=== PATIENT | male | born 1965 | race Caucasian/White ===

== ENCOUNTER 2021-01-24 13:56 | Outpatient (REF) | payer OTHER, SELFPAY ==
--- NOTE | ~2021-01-24 | XR_ITS ---
EXAMINATION: XR KNEE, LEFT CLINICAL INFORMATION: Left knee pain. COMPARISON: None. TECHNIQUE: 4 views of the left knee. FINDINGS: There is no evidence of acute fracture or dislocation of the left knee. There is a small left knee effusion. Left knee joint spaces are maintained. There is some mild spurring about the lateral facet of the patellofemoral joint. There is a small spur site of insertion of the quadriceps tendon on the patella. XR/XR knee LT 4V IMPRESSION: Small left knee effusion. Mild patellofemoral joint degenerative change.
== END 2021-01-24 13:57 | disposition home or self-care (01) ==
LOC: HO.XRAY 13:56
PROVIDERS: PCP Internal Medicine; Visit Provider Internal Medicine
DX: M25.562 Pain in left knee (principal)
CPT/HCPCS: 73564

== ENCOUNTER 2021-10-05 14:05 | Outpatient (REF) | payer OTHER, SELFPAY ==
[2021-10-05 15:23] LABS: COVID-19 Test Negative (Negative)
== END 2021-10-05 14:06 | disposition home or self-care (01) ==
LOC: HO.LAB 14:05
PROVIDERS: Visit Provider Internal Medicine
DX: Z20.822 Contact with and (suspected) exposure to COVID-19 (principal)
CPT/HCPCS: 36415; 87635; C9803

== ENCOUNTER 2021-11-01 11:33 | Outpatient (REF) | payer OTHER, SELFPAY ==
[2021-11-01 13:19] LABS: Binax Internal Control QC Valid; Binax Now Covid-19 Ag Positive (Negative)
== END 2021-11-01 11:34 | disposition home or self-care (01) ==
LOC: HO.LAB 11:33
PROVIDERS: Visit Provider Internal Medicine
DX: Z20.822 Contact with and (suspected) exposure to COVID-19 (principal)
CPT/HCPCS: C9803

== ENCOUNTER 2023-07-02 08:49 | Outpatient (REF) | payer OTHER, SELFPAY ==
[2023-07-02 11:28] LABS: MANUAL DIFF FLAG NO
[2023-07-02 11:41] LABS: Basophils Absolute Auto 0.1 X10*3/uL (0.0-0.2); Basophils Percent Auto 0.7 % (0-2); Eosinophils Absolute Auto 0.5 X10*3/uL (0.0-0.4); Eosinophils Percent Auto 6.7 % (0-4); Hematocrit 44.9 % (42.0-52.0); Hemoglobin 15.2 g/dl (14.0-18.0); Imm Gran Abs Auto 0.02 X10*3/uL (0.00-0.03); Imm Gran Pct Auto 0.3 % (0.0-0.4); Lymphocytes Absolute Auto 3.6 X10*3/uL (1.2-4.9); Lymphocytes Percent Auto 47.5 % (20-40); Mean Corpuscular HGB Conc 33.9 g/dl (31.0-36.0); Mean Corpuscular Hemoglobin 30.1 pg (27.0-33.0); Mean Corpuscular Volume 88.9 fL (80.0-98.0); Mean Platelet Volume 10.4 fL (9.4-12.4); Monocytes Absolute Auto 0.7 X10*3/uL (0.1-1.2); Monocytes Percent Auto 8.9 % (2-11); Neutrophils Absolute Auto 2.7 x10*3/uL (2.0-8.3); Neutrophils Percent Auto 35.9 % (45-73); Platelet Count 247 X10*3/uL (160-400); Red Blood Count 5.05 X10*6/uL (4.60-5.80); Red Cell Distribution Width 12.9 % (11.0-16.0); White Blood Count 7.6 X10*3/uL (4.8-10.8)
[2023-07-02 11:54] LABS: Alanine Aminotransferase 18 U/L (0-40); Albumin Level 4.4 g/dL (3.5-5.0); Alkaline Phosphatase 60 U/L (39-117); Anion Gap 11 (12-20); Aspartate Amino Transferase 18 U/L (5-37); Bilirubin Total 0.7 mg/dL (0.0-1.0); Blood Urea Nitrogen 14 mg/dL (9-16); Calcium 10.6 mg/dL (8.4-10.2); Carbon Dioxide 28 mmol/L (22-29); Chloride 106 mmol/L (96-108); Cholesterol 208 mg/dL (<200); Estimated Glomerular Filt Rate > 60; Glucose Fasting 105 mg/dL (60-99); HDL Cholesterol 59 mg/dL (>40); LDL Cholesterol Calculated 123 mg/dL (<100); Potassium 4.4 mmol/L (3.3-5.1); Sodium 141 mmol/L (135-145); Total Protein 6.8 g/dL (6.5-8.0); Triglycerides 132 mg/dL (<150)
[2023-07-02 12:04] LABS: Prostate Specific Antigen Scr 1.67 ng/mL (<0.05-4.0)
== END 2023-07-02 08:50 | disposition home or self-care (01) ==
LOC: HO.HMGCLDS 08:49
PROVIDERS: PCP Internal Medicine; Visit Provider Internal Medicine
DX: Z12.5 Encounter for screening for malignant neoplasm of prostate (principal); R35.1 Nocturia; E78.00 Pure hypercholesterolemia, unspecified
CPT/HCPCS: 36415; 80053; 80061; 84153; 85025

== ENCOUNTER 2025-05-20 09:11 | Outpatient (AMB) | payer BC, SELFPAY ==
--- NOTE | 2025-05-20 09:16 | A.OFFPC_ITS ---
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 Worried about increased cancer risk Family history of skin cancer. Personal histor of SKs, freckles etc. Requests referral to dermatology Colonoscopy 2017-Dr Lee 10 year repeat ROS CONSTITUTIONAL: Denies weight loss, fever and chills. HEENT: Denies changes in vision and hearing. RESPIRATORY: Denies SOB and cough. CV: Denies palpitations and CP GI: Denies abdominal pain, nausea, vomiting and diarrhea. : Denies dysuria and urinary frequency. MSK: Denies new myalgia and joint pain. SKIN: Denies rash and pruritus. NEUROLOGICAL: Denies headache PSYCHIATRIC: Denies recent changes in mood. PHYSICAL EXAM: GENERAL: Alert and oriented x 3. NAD EYES: EOMI. Anicteric. HENT: Moist mucous membranes. No scleral icterus. No cervical lymphadenopathy. LUNGS: Clear to auscultation bilaterally. CARDIOVASCULAR: Regular rate and rhythm. No murmur. No JVD. ABDOMEN: Soft, non-tender +bs EXTREMITIES: No edema. Non-tender. SKIN: No rashes or lesions. Warm. NEUROLOGIC: No focal neurological deficits. CN II-XII grossly intact PSYCHIATRIC: Cooperative. Appropriate mood and affect [facility] Surgical History History of colonoscopy (~11/02/16) Social History Patient Tobacco Use Status: Former Tobacco user e-Cigarette/Vaping Use: Never Used Questionnaire AUDIT C Alcohol Use Questionnaire (AUDIT-C) 1. How often do you have a drink containing alcohol?: 2-4 times a month 2. How many drinks containing alcohol do you have on a typical day when you are drinking?: 3 or 4 Total Score: 3 Physical exam (Primary Care) Vital Signs: Last Vital Signs Temp 97.8 F 05/20/25 09:19 Pulse 66 05/20/25 09:19 Resp 16 05/20/25 09:19 BP 130/86 05/20/25 09:19 Pulse Ox 97 05/20/25 09:19 Oxygen Delivery Method Room Air 05/20/25 09:19 BMI result Body Mass Index 27.2 Tobacco/Smoking Status: Tobacco use Status Tobacco use date assessed 05/20/25 05/20/25 09:22 Patient Tobacco Use Status Former Tobacco user 05/20/25 09:22 e-Cigarette/Vaping Use Never Used 05/20/25 09:22 Coding Level of Care Code New Pt Prev Care 40-64y(18996) Diagnoses Physical exam Z00.00 Elevated glucose R73.09 Assessment & Plan Assessment & Plan (1) Physical exam: Code(s): Z00.00 - Encounter for general adult medical examination without abnormal findings (2) Elevated glucose: Code(s): R73.09 - Other abnormal glucose Category: Medical Plan CPE Past medical, surgical, social history reviewed Preventive measures for age discussed Labs ordered History of elevated glucose-he has recently lost 20 pounds. Congratulated on efforts. Orders: Orders Complete Blood Count Auto Diff Today E78.5 - Hyperlipidemia, unspecified, E83.52 - Hypercalcemia, R73.09 - Other abnormal glucose, R79.89 - Other specified abnormal findings of blood chemistry, Z12.5 - Encounter for screening for malignant neoplasm of prostate Hemoglobin A1c Today E78.5 - Hyperlipidemia, unspecified, E83.52 - Hypercalcemia, R73.09 - Other abnormal glucose, R79.89 - Other specified abnormal findings of blood chemistry, Z12.5 - Encounter for screening for malignant neoplasm of prostate Lipid Panel Today E78.5 - Hyperlipidemia, unspecified, E83.52 - Hypercalcemia, R73.09 - Other abnormal glucose, R79.89 - Other specified abnormal findings of blood chemistry, Z12.5 - Encounter for screening for malignant neoplasm of prostate TSH reflex Free T4 Today Z13.228 - Encounter for screening for other metabolic disorders Comprehensive Met. Panel Today E78.5 - Hyperlipidemia, unspecified, E83.52 - Hypercalcemia, R73.09 - Other abnormal glucose, R79.89 - Other specified abnormal findings of blood chemistry, Z12.5 - Encounter for screening for ma lignant neoplasm of prostate Prostate Specific Antigen Today E78.5 - Hyperlipidemia, unspecified, E83.52 - Hypercalcemia, R73.09 - Other abnormal glucose, R79.89 - Other specified abnormal findings of blood chemistry, Z12.5 - Encounter for screening for malignant neoplasm of prostate Pathologist Review - CBC Today R79.89 - Other specified abnormal findings of blood chemistry Referrals Dermatology Referral Z12.83 - Encounter for screening for malignant neoplasm of skin
[2025-05-20 09:19] VITALS: BP 130/86; PULSE 66; RESP 16; TEMP 36.6; O2SAT 97; BMI 27.2
--- OUTSIDE RECORDS SUMMARY | 2025-05-20 09:29 | XMS_ITS | Patient Health Record ---
Author Organization [facility] Address [address] [place] [address] Care Team Providers Care Technology Architect Name Role Phone Brennon (RETIRED) Mathew LOBO Primary Care Provide r Unavailable Van Gerber Unavailable [phone] Reason For Referral No Information Medications Medication SIG (Take, Route, Frequency, Duration) Notes Start Date End Date Status Atorvastatin Calcium 10 MG Orally Active Problems Problem Type SNOMED Code ICD Code Onset Dates Problem Status W/U Status Risk Notes Problem 375709142 Encounter for screening for malignant neoplasm of colon (Z12.11) Active confirmed Problem Encounter for screening for malignant neoplasm of rectum (Z12.12) Active confirmed Problem 64368414 Preprocedural examination (Z01.818) Active confirmed Plan Of Treatment Pending Test Test Name Order Date GI BIOPSY 11/02/2016 Future Test Test Name Order Date COLONOSCOPY 08/28/2016 Insurance Providers Payer Name Payer Address Payer Phone Subscriber Number Group Number Insured Name Patient Relationship to Insured Coverage Start Date Coverage End Date [facility] PROFESSIONAL CLAIMS [address] [place] [phone] [id number] SILVIA OLSON Self - patient is the insured Medical (General) History Medical History History ICD Code Denies [place],DM,CVA,Lung disease,renal dise ase Surgical History Surgery Date(Month/Year) Abdominal surgery as a child---? Of some type of obstruction
== END 2025-05-20 09:45 | disposition home or self-care (01) ==
LOC: HO.HMCHD 09:11
PROVIDERS: PCP Internal Medicine; Visit Provider Internal Medicine
DX: Z00.00 Encounter for general adult medical examination without abnormal findings (principal); R73.09 Other abnormal glucose

== ENCOUNTER 2025-05-20 09:51 | Outpatient (REF) | payer BC, SELFPAY ==
[2025-05-20 11:23] LABS: Hematocrit 42.2 % (42.0-52.0); Hemoglobin 14.6 g/dl (14.0-18.0); Imm Gran Abs Auto 0.02 X10*3/uL (0.00-0.03); Imm Gran Pct Auto 0.1 % (0.0-0.4); Lymphocytes Absolute Auto 11.5 X10*3/uL (1.2-4.9); MANUAL DIFF FLAG SCAN; Mean Corpuscular HGB Conc 34.6 g/dl (31.0-36.0); Mean Corpuscular Hemoglobin 30.4 pg (27.0-33.0); Mean Corpuscular Volume 87.7 fL (80.0-98.0); NRBC Abs Auto 0.000 X10*3/uL (0.0-0.012); NRBC Pct Auto 0.0 /100WBC (0.0-0.2); Platelet Count 237 X10*3/uL (160-400); Red Blood Count 4.81 X10*6/uL (4.60-5.80); SCAN SMEAR FLAG 1; White Blood Count 15.3 X10*3/uL (4.8-10.8)
[2025-05-20 11:30] LABS: Hemoglobin A1C 134.9537 umol/L; Total Hemoglobin (HGBA1C) 3855.1039 umol/L
[2025-05-20 11:53] LABS: Alanine Aminotransferase 22 U/L (0-40); Albumin Level 4.8 g/dL (3.5-5.0); Alkaline Phosphatase 71 U/L (39-117); Anion Gap 10 (12-20); Aspartate Amino Transferase 27 U/L (5-37); Blood Urea Nitrogen 10 mg/dL (9-16); Calcium 10.1 mg/dL (8.4-10.2); Carbon Dioxide 28 mmol/L (22-29); Chloride 108 mmol/L (96-108); Cholesterol 201 mg/dL (<200); Estimated Glomerular Filt Rate > 60; HDL Cholesterol 55 mg/dL (>40); Potassium 4.6 mmol/L (3.3-5.1); Prostate Specific Antigen 2.04 ng/mL (<0.05-4.0); Sodium 141 mmol/L (135-145); Total Protein 7.1 g/dL (6.5-8.0); Triglycerides 116 mg/dL (<150)
== END 2025-05-20 09:52 | disposition home or self-care (01) ==
LOC: HO.10HDL 09:51
PROVIDERS: Visit Provider Internal Medicine
DX: Z12.5 Encounter for screening for malignant neoplasm of prostate (principal); Z13.228 Encounter for screening for other metabolic disorders; R79.89 Other specified abnormal findings of blood chemistry; R73.09 Other abnormal glucose; E83.52 Hypercalcemia; E78.5 Hyperlipidemia, unspecified
CPT/HCPCS: 80053; 80061; 83036; 84153; 84443; 85025

== ENCOUNTER → 2025-06-23 15:20 | Outpatient (BNV) | payer BC, SELFPAY | PROVIDERS: PCP Internal Medicine; Referring Provider Internal Medicine; Visit Provider Internal Medicine | DX: D72.820 Lymphocytosis (symptomatic) (principal) | CPT/HCPCS: 99204 ==

== ENCOUNTER 2025-07-20 15:32 | Outpatient (REF) | payer BC, SELFPAY ==
--- NOTE | ~2025-07-20 | US_ITS ---
CLINICAL HISTORY: CLL, evaluate for hepatosplenomegaly Ultrasound of the abdomen Comparison: None available Findings: The liver is normal in size, measuring 16.4cm. Normal echogenicity without focal lesions. Normal flow is visualized within the portal vein. No intrahepatic biliary ductal dilatation. No cholelithiasis. No gallbladder wall thickening or pericholecystic fluid. Negative Higgins's sign. The common bile duct is normal, measuring 0.4cm. Unremarkable limited evaluation of the pancreas. The right kidney is normal in echogenicity and size, measuring 10.8cm. No nephrolithiasis or hydronephrosis. Simple cyst in the lower pole measuring 0.7 x 0.5 x 0.7 cm The left kidney is normal echogenicity and size, measuring 11.1cm. No nephrolithiasis or hydronephrosis. Lobular contour of the midportion. The spleen is without focal lesions and normal in size, measuring 12.1cm. The aorta and IVC are unremarkable. No ascites. Impression: No hepatosplenomegaly. Lobular contour of the midportion of the left kidney is favored to be a dromedary hump, a normal variant. A solid renal lesion is considered less likely. This can be confirmed with nonemergent cross-sectional imaging. This document has been electronically signed by: Sharon Dinh MD on 07/20/2025 17:25:53
--- OUTSIDE RECORDS SUMMARY | 2025-07-20 16:49 | XMS_ITS | Patient Health Record ---
Author Organization [facility] Address [address] [place] [address] Care Team Providers Care Vice President Of Sales Name Role Phone Brennon (RETIRED) Mathew LOBO Primary Care Provide r Unavailable Van Gerber Unavailable [phone] Reason For Referral No Information Medications Medication SIG (Take, Route, Frequency, Duration) Notes Start Date End Date Status Atorvastatin Calcium 10 MG Orally Active Problems Problem Type SNOMED Code ICD Code Onset Dates Problem Status W/U Status Risk Notes Problem [id number] Encounter for screening for malignant neoplasm of colon (Z12.11) Active confirmed Problem Screening for malignant neoplasm of rectum (443209447) Encounter for screening for malignant neoplasm of rectum (Z12.12) Active confirmed Problem 84888816 Preprocedural examination (Z01.818) Active confirmed Plan Of Treatment Pending Test Test Name Order Date GI BIOPSY 11/02/2016 Future Test Test Name Order Date COLONOSCOPY 08/28/2016 Insurance Providers Payer Name Payer Address Payer Phone Subscriber Number Group Number Insured Name Patient Relationship to Insured Coverage Start Date Coverage End Date [facility] [employer] PROFESSIONAL CLAIMS [address] [place] [address] [id number] SILVIA SHIRLEY Self - patient is the insured Medical (General) History Medical History History ICD Code Denies CA,DM,CVA,Lung disease,renal dise ase Surgical History Surgery Date(Month/Year) Abdominal surgery as a child---? Of some type of obstruction
== END 2025-07-20 15:33 | disposition home or self-care (01) ==
LOC: HO.US 15:32
PROVIDERS: PCP Internal Medicine; Visit Provider Internal Medicine
DX: D72.820 Lymphocytosis (symptomatic) (principal)
CPT/HCPCS: 76700

== ENCOUNTER → 2025-07-20 15:35 | Outpatient (BNV) | payer BC, SELFPAY | PROVIDERS: PCP Internal Medicine; Visit Provider Radiology Diagnostic Radiology | DX: N28.1 Cyst of kidney, acquired (principal); D72.820 Lymphocytosis (symptomatic) | CPT/HCPCS: 76700 ==